=== PATIENT | female | born 1975 | race Caucasian/White ===

== ENCOUNTER 2018-12-26 13:31 | Outpatient (AMBR) | payer SELFPAY ==
--- NOTE | 2018-12-26 14:01 | PT.ODS1RPT ---
PT OP Progress/Discharge Note Date of Service: December 26, 2018 Progress Note/DC Note Progress Note/Discharge Note: DC Note Patient Information Visit Reasons: neck pain Medical Diagnosis: S33.5XXA Treatment Dx #1: Back Pain Service Continue Service or Discharge: Discharge Discharge Date: 12/26/18 Status Subjective: Pt mention that her back is a little better but still doesn't feel the same prior to the week incident. Pt is currently seeing a chiropractor the past week. Pt's pain is 6/10 and still notice intermittent numbness and tingling down the leg. Pt continues to have difficulty with prolonged sitting, standing, chores, self care, and perform lifting activities. Objective: L/S AROM Flexion: 80 deg with pain Extension: 10 deg with pain Left and Right Sidebending: WFL Left and Right Rotation: WFL Hip PROM: all motions are WFL Hip MMTs: grossly 3+/5 Assessment: Pt demonstrate slight improvement with mobility and hip strength, however, continues to have pain leading to limited mobility. Due to her pain she continues to have limitation with sitting, standing, chores, self care, and lifting activities. Pt will no longer benefit from physical therapy due to minimal progression towards goals. Pt was not instructed on HEP last session due to currently seeing a chiropractor. Pt advised to follow up with MD if back pain continues to persist. Plan: D/C home and follow up with MD RIOS Continue with Chiropractor Treatment Office Procedures PT Procedures PT Date of Service: 12/26/18 Therapeutic Exercise 15 minutes: Yes Self Care/Home Mgmt 15 minutes: Yes
== END 2019-01-16 23:59 | disposition home or self-care (01) ==
PROVIDERS: PCP Internal Medicine; Referring Provider Internal Medicine; Visit Provider Family Medicine
DX: S33.5XXD Sprain of ligaments of lumbar spine, subsequent encounter (principal); S16.1XXD Strain of muscle, fascia and tendon at neck level, subsequent encounter; X58.XXXD Exposure to other specified factors, subsequent encounter
CPT/HCPCS: 97110; 97535

== ENCOUNTER 2025-01-07 09:18 | Emergency (ER) | payer MEDICAID, SELFPAY ==
[2025-01-07 09:34] VITALS: BP 153/104; PULSE 115; RESP 18; TEMP 37.2; O2SAT 97; BMI 42.5
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
--- NOTE | 2025-01-07 09:41 | XR_ITS ---
Examination: Abdomen sonogram, Limited Date and time of exam: January 07, 2025 1003 hours INDICATIONS: Upper abdominal pain beginning 4 days ago Technique: Real-time rodriguez scale transabdominal sonographic images of the upper abdomen obtained. Findings: 24 mm gallstone Gallbladder wall 0.42 cm no edema Common bile duct 0.4 cm Pancreatic head 2.7 cm Liver 13.8 cm irregular contour no focal liver lesions Normal hepatopedal portal venous flow Patent IVC IMPRESSION: Cholelithiasis Abnormal thickening of the gallbladder wall, consider HIDA scan or MRCP follow-up
--- NOTE | 2025-01-07 09:41 | EKG_ITS ---
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
--- NOTE | 2025-01-07 09:41 | PD.EDRME ---
Rapid Medical Screening Exam RME Arrival date/time: 01/07/25 09:18 49-year-old female presents to the emergency department complains of upper abdominal pain and chest pain Chief Complaint: Abdominal Pain Time Seen by Provider: 01/07/25 09:21 Vital signs: Vital Signs Temperature 99.0 F 01/07/25 09:34 Pulse Rate 115 H 01/07/25 09:34 Respiratory Rate 18 01/07/25 09:34 Blood Pressure 153/104 H 01/07/25 09:34 Pulse Oximetry (%) 97 01/07/25 09:34 Oxygen Delivery Method Room Air 01/07/25 09:34
[2025-01-07 11:18] LABS: Basophils # (Auto) 0.1 Thou/mm3 (0.0-0.2); Basophils % (Auto) 1 % (0-2.5); Eosinophils # (Auto) 0.2 Thou/mm3 (0.0-0.5); Eosinophils % (Auto) 2 % (0-10); Hematocrit 44.7 % (36.0-46.0); Hemoglobin 15.1 g/dL (12.0-16.0); Immature Granulocytes % (Auto) 0 % (0-0); Immature Granulocytes Auto 0.04 Thou/mm3 (0.00-0.00); Lymphocytes # (Auto) 3.3 Thou/mm3 (1.0-4.8); Lymphocytes % (Auto) 33 % (10-50); Mean Corpuscular HGB Conc 33.8 g/dl (31.0-37.0); Mean Corpuscular Hemoglobin 28.5 pg (25.0-35.0); Mean Corpuscular Volume 85 fL (80-100); Monocytes # (Auto) 0.7 Thou/mm3 (0.0-0.8); Monocytes % (Auto) 7 % (0-12); Neutrophils # (Auto) 5.6 Thou/mm3 (1.8-7.7); Neutrophils % (Auto) 57 % (37-80); Nucleated Red Blood Cell % 0 /100 WBC (0); Platelet Count 308 Thou/mm3 (140-440); RDW Standard Deviation 41.1 fL (36.4-46.3); Red Blood Count 5.29 Miln/mm3 (4.00-5.20)
[2025-01-07 11:50] LABS: Alanine Aminotransferase 21 U/L (10-49); Albumin, Serum 4.2 gm/dL (3.5-5.0); Albumin/Globulin Ratio 1.5 (1.2-2.2); Alkaline Phosphatase 67 U/L (46-116); Anion Gap 9 (7-16); Aspartate Amino Transferase 19 U/L (0-34); BUN/Creatinine Ratio 17 Ratio (12-20); Bilirubin,Total 0.3 mg/dL (0.3-1.2); Blood Urea Nitrogen 15 mg/dL (9-23); Calcium 9.9 mg/dL (8.3-10.6); Calcium (Corrected) 9.9 mg/dL (8.5-10.1); Carbon Dioxide 24.8 mMol/L (20.0-31.0); Chloride 107 mMol/L (98-107); Creatinine (Component) 0.9 mg/dL (0.6-1.3); Estimated Creatinine Clearance 108.7 mL/min (>60); Globulin 2.8 gm/dL (2.3-3.5); Glucose 95 mg/dL (74-106); Lipase 32 U/L (12-53); Osmolality,Calculated 282 (275-295); Sodium 141 mMol/L (136-145); Thyroid Stimulating Hormone 0.05 uIU/mL (0.55-4.78); Troponin I < 0.020 ng/mL (0.0-0.045); eGFR > 60 See Note
[2025-01-07 13:28] VITALS: BP 137/100; PULSE 90; RESP 18; TEMP 36.9; O2SAT 98
--- NOTE | 2025-01-07 13:32 | EDNOTE_ITS ---
ED Chest Pain RME/HPI General Chief Complaint: Abdominal Pain Stated Complaint: UPPER ABD X SUN AND CX PAIN X 0830 Time Seen by Provider: 01/07/25 09:21 Arrival date/time: 01/07/25 09:18 RME / HPI RME / HPI narrative: 49-year-old female patient with significant history of hypothyroidism, came in for evaluation regarding epigastric pain. Onset of symptoms for the last 3 days as epigastric pain, sudden onset described as sharp pain, severity moderate radiating to the upper chest. Patient denies any fever denies any vomiting denies any other complaints no medication was taken prior to arrival. Related Data Home Medications ?Medication ?Instructions ?Recorded ?Confirmed thyroid (pork) 120 mg tablet 180 mg PO QDAY 10/06/18 0 07/10/23 ([place] Thyroid) acetaminophen 500 mg tablet 500 mg PO Q6H PRN Pain 07/10/23 atorvastatin 20 mg tablet 20 mg PO QPM 04/11/23 ibuprofen 200 mg tablet 200 mg PO Q6H PRN Pain 04/1107/10/23 cholecalciferol (vitamin D3) 50 50 mcg PO QDAY 3 07/10/23 mcg (2,000 unit) capsule (Vitamin D3) Previous Rx's ?Medication ?Instructions ?Recorded hydralazine 10 mg tablet 10 mg PO TID 30 days #90 tab s 07/16/23 pantoprazole 40 mg tablet,delayed 40 mg PO QDAY 30 day s #30 tabs 07/16/23 release (Protonix) dicyclomine 20 mg tablet 20 mg PO BID PRN abdominal p ain 01/07/25 #20 tabs ibuprofen 800 mg tablet 800 mg PO TID PRN pain #30 t abs 01/07/25 pantoprazole 40 mg tablet,delayed 40 mg PO QDAY #20 ta bs 01/07/25 release (Protonix) Allergies Allergy/AdvReac Type Severity Reaction Status Date / Time promethazine (From Phenergan) Allergy Intermediate Blurry Verified 01/07/25 09:20 Vision hydrocodone Allergy Mild RASH Verified 01/07/25 09:20 butorphanol Allergy Unknown Verified 01/07/25 09:20 codeine Allergy Verified 01/07/25 09:20 gabapentin (From Neurontin) Allergy Verified 01/07/25 09:20 meperidine (From Demerol) Allergy Verified 01/07/25 09:20 Review of Systems Review of Systems Narrative Review of Systems: Review of system reviewed and within normal limits except mentioned in HPI ED Exam Narrative Physical exam: VITAL SIGNS: Reviewed. GENERAL APPEARANCE: Alert and interactive, follows commands, no acute distress, HEAD AND FACE: Non-traumatic. ENT: PERRL, pink conjunctivitis, eyelid no trauma, Mucous membrane moist. NECK: Supple, nontender, no nuchal rigidity. CHEST: No tenderness, no crepitus, no paradoxical movement, no retractions. LUNGS: Clear, well ventilated, symmetric, no rales, no wheezing, no ronchi, no stridor, good breath sounds bilaterally. HEART: Regular rate, regular rhythm, no murmur, no gallops. ABDOMEN: Soft, positive bowel sounds, nondistended, no guarding, right upper quadrant tenderness, no rebound, no masses, RECTAL: Deferred. GENITAL: Deferred. NEUROLOGICAL: Gross motor function intact sensory function intact, Appropriate for age. MUSCULOSKELETAL: low back nontender, full range of motion. EXTREMITIES: Nontender, full range of motion. SKIN: Color pink, dry, no rash, no lacerations, no abrasions, no contusions. LYMPHATICS: Deferred. Course Quality Measures none Orders Category Date Time Status EKG (ED ONLY) *Do not use* NOW Care 01/07/25 09:41 Completed EKG (ED Only) Stat Exams 01/07/25 09:41 Draft US gall bladder Stat Exams 01/07/25 09:41 Completed XR chest 2V Stat Exams 01/07/25 09:41 Completed CBC Stat Lab 01/07/25 10:59 Completed Comprehensive Metabolic Panel Stat Lab 01/07/25 10:59 Completed Free T4 (Free Thyroxine) Stat Lab 01/07/25 10:59 Completed Lipase Stat Lab 01/07/25 10:59 Completed TSH [Thyroid Stimulating Hormone] Stat Lab 01/07/25 10:59 Completed Troponin I Stat Lab 01/07/25 10:59 Completed Dicyclomine [Bentyl] Med 01/07/25 13:31 Discontinued 20 mg PO X1 ONE Famotidine [Pepcid] Med 01/07/25 13:31 Discontinued 40 mg PO X1 ONE Ketorolac Inj [Toradol Inj] Med 01/07/25 13:31 Discontinued 30 mg IM X1 ONE Vital Signs Vital signs: Vital Signs Temperature 99.0 F 01/07/25 09:34 Pulse Rate 115 H 01/07/25 09:34 Respiratory Rate 18 01/07/25 09:34 Blood Pressure 153/104 H 01/07/25 09:34 Pulse Oximetry (%) 97 01/07/25 09:34 Oxygen Delivery Method Room Air 01/07/25 09:34 Chest Pain [facility] Narrative [facility] Narrative:: 49-year-old female patient with significant history of hypothyroidism, came in for evaluation regarding epigastric pain. Onset of symptoms for the last 3 days as epigastric pain, sudden onset described as sharp pain, severity moderate radiating to the upper chest. Patient denies any fever denies any vomiting denies any other complaints no medication was taken prior to arrival. Laboratory Showed no leukocytosis LFTs are normal total bili is normal, ultrasound of the gallbladder showed cholelithiasis with no sign of acute. This patient Patient received Toradol, Bentyl and Pepcid with significant throbbing pain Patient appears nontoxic and hemodynamically stable. Patient discharged home and instructed to follow-up with primary care provider in 24 to 48 hours. Instructed to return to the emergency department immediately if worsening of symptoms Patient data External records reviewed:: None Clinical information provided by:: patient Social determinants that could affect healthcare access:: none Patient has the following chronic illnesses:: hypothyroidism How is presenting disease/condition affected by chronic disease/condition?: uneffected by Evaluation data The following diagnostics were reviewed and interpreted by me:: lab results and radiology exam(s) Lab and/or radiology exams considered but not ordered:: None Interpretation Summary: See results in MDM Medications / Prescriptions Medications or Prescriptions considered but not ordered:: None Medication administrations:: Medication Administration History Discontinued Medications Dicyclomine HCl (Dicyclomine 10 Mg Capsule) 20 mg PO X1 ONE Stop: 01/07/25 13:32 Last Admin: 01/07/25 13:53 Dose: 20 mg Documented By: OA Famotidine (Famotidine 20 Mg Tablet) 40 mg PO X1 ONE Stop: 01/07/25 13:32 Last Admin: 01/07/25 13:54 Dose: 40 mg Documented By: OA Ketorolac Tromethamine (Ketorolac Inj 60 Mg/2 Ml Vial) 30 mg IM X1 ONE Stop: 01/07/25 13:32 Last Admin: 01/07/25 13:53 Dose: 30 mg Documented By: OA Toradol Pepcid and Bentyl Consultations Consultation(s) initiated? (list below): Yes Diagnosis Chest Pain Differential Diagnosis: pneumothorax, costochondritis and biliary colic Most likely diagnosis given after review of the tests above:: Gallstone Admission Indicated Admission indicated?: not indicated Explain why admission is indicated or not indicated:: Stable Admission Request Was there a request for admission?: No Disposition Plan Disposition Plan: Discharge Discharge Attestation Discharge Attestation: The patient was given an opportunity to ask questions and understood the discharge instructions. Discharge instructions specifically effects, indications for sooner follow up or return to the emergency department, and the expected course of current diagnosis. Patient condition: Stable Discharge Plan Plan Patient Disposition: HOME (Self Care) Disposition Comment: stable Prescriptions/Referrals Prescriptions/Med Rec: New pantoprazole [Protonix] 40 mg tablet,delayed release (DR/EC) 40 mg PO QDAY Qty: 20 0RF dicyclomine 20 mg tablet 20 mg PO BID PRN (Reason: abdominal pain) Qty: 20 0RF ibuprofen 800 mg tablet 800 mg PO TID PRN (Reason: pain) Qty: 30 0RF No Action thyroid (pork) [[place] Thyroid] 120 mg Tablet 180 mg PO QDAY atorvastatin 20 mg Tablet 20 mg PO QPM acetaminophen 500 mg Tablet 500 mg PO Q6H PRN (Reason: Pain) ibuprofen 200 mg Tablet 200 mg PO Q6H PRN (Reason: Pain) cholecalciferol (vitamin D3) [Vitamin D3] 50 mcg (2,000 unit) Capsule 50 mcg PO QDAY hydralazine 10 mg Tablet 10 mg PO TID 30 Days Qty: 90 1RF pantoprazole [Protonix] 40 mg tablet,delayed release (DR/EC) 40 mg PO QDAY 30 Days Qty: 30 2RF Referrals: No Primary/Family,Physician [Primary Care Provider] - In 1 week Problem List Clinical Impression: Biliary colic, Gallstone Patient/Caregiver Discharge Instructions Discharge Activity: activity as tolerated Education Materials: Treating Gallstones Additional Instructions: Thank you for the opportunity for serving you today. You are stable for discharged . You are advised to: Follow-up with your PCP in 1 to 2 days as per referral to general surgeon Please avoid eating fatty, greasy, fried foods Return to ED for worsening of symptoms Increase oral fluids Take medication as prescribed Print Language: Kiswahili Stand Alone Forms: Debra Award Info., Patient Portal Info Letter
[2025-01-07] MEDS: DICYCLOMINE 10 MG CAPSULE 20 MG PO (13:53)
[2025-01-07] MEDS: KETOROLAC INJ 60 MG/2 ML VIAL 30 MG IM (13:53)
[2025-01-07] MEDS: FAMOTIDINE 20 MG TABLET 40 MG PO (13:54)
== END 2025-01-07 16:25 | disposition home or self-care (01) ==
PROVIDERS: Nurse Practitioner Primary Care; Emergency Provider Emergency Medicine
DX: K80.70 Calculus of gallbladder and bile duct without cholecystitis without obstruction (principal); E03.9 Hypothyroidism, unspecified; Z88.5 Allergy status to narcotic agent
CPT/HCPCS: 36415; 71046; 76705; 80053; 83690; 84439; 84443; 84484; 85025; 93005; 96372; 99284; J1885; A9270